=== PATIENT | female | born 1975 | race Caucasian/White ===

== ENCOUNTER → 2017-07-16 | Outpatient (CLI) | payer BC ==
[~2017-07-16] MED LIST: ATOR10TA9; BIOT0.5P; BUTA-177 PO; CALC600T4; DICY20TA3 PO; ESTR1.25 PO; HYDR-3240 PO; LISI2.5T PO; METF500T4; METF500T4 PO; OXYC1TAB7 PO; TOPI100C; TOPI25TA8 PO
== END | disposition home or self-care (01) ==
LOC: CFH 08:51
PROVIDERS: ATTEND Family Medicine
DX: Z12.31 Encounter for screening mammogram for malignant neoplasm of breast (principal)
CPT/HCPCS: 77063; 77067

== ENCOUNTER → 2017-12-27 | Outpatient (CLI) | payer BC ==
[~2017-12-27] MED LIST changes: -METF500T4; -METF500T4 PO; +METF500T5; +METF500T5 PO; -TOPI100C; +TOPI100C6
== END | disposition home or self-care (01) ==
LOC: CFH 15:08
PROVIDERS: ATTEND Psychiatry & Neurology Neurology
DX: J34.1 Cyst and mucocele of nose and nasal sinus (principal)
CPT/HCPCS: 70551